=== PATIENT | female | born 1980 | race Caucasian/White ===

== ENCOUNTER 2017-08-03 17:57 | Emergency (ER) | payer OTHER ==
[2017-08-03 18:04] VITALS: BP 132/86
[2017-08-03] MEDS ORDERED: Sodium Chloride 0.9% 10 ML Syringe FLUSH PRN (18:35)
--- NOTE | 2017-08-03 20:03 | EDM.PDOC ---
ED HPI GENERAL MEDICAL PROBLEM - General Chief Complaint: Chest Pain Stated Complaint: CP/SOB Time Seen by Provider: 08/03/17 18:32 Source of Information: Reports: Patient History Limitations: Reports: No Limitations - History of Present Illness INITIAL COMMENTS - FREE TEXT/NARRATIVE: The patient presents with shortness of breath and chest pain. This started this morning and she has continued. She has never had trouble breathing. She has no fever, chills, cough, abdominal pain, nausea or vomiting. She has a history of a fast heart rhythm. She is on a beta pascual. 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: Reports: Other (see below) Other Treatments VOICE SYSTEMS ENGINEER: none Chest Pain Score (Numeric/FACES): 5 - Related Data Allergies Allergy/AdvReac Type Severity Reaction Status Date / Time acetaminophen Allergy Severe Vomiting Verified 04/13/14 22:02 [From Darvocet-N 100] propoxyphene napsylate Allergy Severe Vomiting Verified 04/13/14 22:02 [From Darvocet-N 100] Home Meds: Home Meds Hydrochlorothiazide 25 mg PO DAILY 04/13/14 [History] Lisinopril 10 mg PO DAILY 04/13/14 [History] Metoprolol Tartrate 100 mg PO DAILY 04/13/14 [History] Potassium Gluconate [Potassium] 20 meq PO DAILY 04/13/14 [History] metFORMIN HCl [Metformin HCl] 500 mg PO DAILY 11/15/14 [History] Aspirin [Halfprin] 81 mg PO DAILY 08/03/17 [History] Flexirle 10 mg PO Q8H PRN 08/03/17 [History] oxyCODONE HCl/Acetaminophen [Oxycodon-Acetaminophen 7.5-300] 10 - 325 mg PO Q6H PRN 08/03/17 [History] Past Medical History - Past Health History Medical/Surgical History: Denies Medical/Surgical History Cardiovascular History: Reports: Hypertension, Other (See Below) Other Cardiovascular History: fast heartbeat Respiratory History: Reports: Bronchitis, Recurrent, Pneumonia, Recurrent, SOB Gastrointestinal History: Reports: GERD Genitourinary History: Reports: UTI, Recurrent 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: 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 Musculoskeletal History: Reports: Back Pain, Chronic Neurological History: Reports: Migraines Psychiatric History: Reports: Anxiety Endocrine/Metabolic History: Reports: Diabetes, Type II Social & Family History - Tobacco Use Smoking Status *Q: Current Every Day Smoker Years of Tobacco use: 20 Packs/Tins Daily: 0.7 Used Tobacco, but Quit: No Month Tobacco Last Used: October Second Hand Smoke Exposure: No - Caffeine Use Caffeine Use: Reports: Coffee Other Caffeine Use: decaff - Alcohol Use Days Per Week of Alcohol Use: 0 - Recreational Drug Use Recreational Drug Use: No ED ROS GENERAL - Review of Systems Review Of Systems: See Below Constitutional: Reports: No Symptoms HEENT: Reports: No Symptoms Respiratory: Reports: Shortness of Breath Cardiovascular: Reports: Chest Pain Endocrine: Reports: No Symptoms GI/Abdominal: Reports: No Symptoms : Reports: No Symptoms Musculoskeletal: Reports: No Symptoms ED EXAM, GENERAL - Physical Exam Exam: See Below Exam Limited By: No Limitations General Appearance: Alert, No Apparent Distress Ears: Normal External Exam Nose: Normal Inspection Head: Atraumatic, Normocephalic Neck: Normal Inspection Respiratory/Chest: No Respiratory Distress, Lungs Clear, Normal Breath Sounds Cardiovascular: Regular Rate, Rhythm, No Edema, No Murmur GI/Abdominal: Soft, Non-Tender, No Organomegaly, No Mass Back Exam: Normal Inspection Extremities: Normal Inspection EKG INTERPRETATION EKG Date: 08/03/17 Time: 18:50 Rhythm: NSR Rate (Beats/Min): 78 [place]: Normal P-Wave: Present QRS: Normal ST-T: Normal QT: Normal Course - Vital Signs Last Recorded V/S: Last Vital Signs Temp 96.2 F 08/03/17 18:03 Pulse 90 08/03/17 18:03 Resp 20 08/03/17 18:03 BP 132/86 08/03/17 18:03 Pulse Ox 100 08/03/17 18:03 - Orders/Labs/Meds Orders: Active Orders 24 hr Category Date Time Status Cardiac Monitoring [RC] . DIRECTED Care 08/03/17 18:35 Active EKG Documentation Completion [RC] STAT Care 08/03/17 18:36 Active Oxygen Therapy [RC] PRN Care 08/03/17 18:36 Active Peripheral IV Care [RC] . DIRECTED Care 08/03/17 18:36 Active Chest 2V [CR] Stat Exams 08/03/17 18:36 Taken Sodium Chloride 0.9% [Saline Flush] Med 08/03/17 18:35 Active 10 ml FLUSH ASDIRECTED PRN Peripheral IV Insertion Adult [OM.PC] Stat Oth 08/03/17 18:35 Ordered Medication Orders Sodium Chloride (Saline Flush) 10 ml FLUSH ASDIRECTED PRN PRN Reason: Keep Vein Open Labs: Laboratory Tests 08/03/17 08/03/17 08/03/17 Range/Units 19:03 19:03 19:03 WBC 13.48 H (3.98-10.04) K/mm3 RBC 5.43 H (3.98-5.22) M/mm3 Hgb 15.1 (11.2-15.7) gm/L Hct 43.3 (34.1-44.9) % MCV 79.7 (79.4-94.8) fl MCH 27.8 (25.6-32.2) pg MCHC 34.9 (32.2-35.5) g/dl RDW Std Deviation 39.6 (36.4-46.3) fL Plt Count 356 (182-369) K/mm3 MPV 10.1 (9.4-12.3) fl Neut % (Auto) 65.4 (34.0-71.1) % Lymph % (Auto) 23.2 (19.3-51.7) % [place] % (Auto) 6.7 (4.7-12.5) % Eos % (Auto) 3.3 (0.7-5.8) Baso % (Auto) 1.0 (0.1-1.2) % Neut # (Auto) 8.80 H (1.56-6.13) K/mm3 Lymph # (Auto) 3.13 (1.18-3.74) K/mm3 [place] # (Auto) 0.90 H (0.24-0.36) K/mm3 Eos # (Auto) 0.45 H (0.04-0.36) K/mm3 Baso # (Auto) 0.14 H (0.01-0.08) K/mm3 Manual Slide Review Normal smear D-Dimer, Quantitative < 0.19 L (0.19-0.59) mg/L Sodium 138 (136-145) mEq/L Potassium 3.5 (3.5-5.1) mEq/L Chloride 103 (98-107) mEq/L Carbon Dioxide 27 (21-32) mEq/L Anion Gap 11.5 (5-15) BUN 11 (7-18) mg/dL Creatinine 0.9 (0.55-1.02) mg/dL Est Cr Clr Drug Dosing 70.11 mL/min Estimated GFR (MDRD) > 60 (>60) mL/min BUN/Creatinine Ratio 12.2 L (14-18) Glucose 107 H (74-106) mg/dL Calcium 9.7 (8.5-10.1) mg/dL Total Bilirubin 0.2 (0.2-1.0) mg/dL AST 14 L (15-37) U/L ALT 24 (14-59) U/L Alkaline Phosphatase 66 (46-116) U/L Troponin I < 0.017 (0.00-0.056) ng/mL Total Protein 7.3 (6.4-8.2) g/dl Albumin 4.0 (3.4-5.0) g/dl Globulin 3.3 gm/dL Albumin/Globulin Ratio 1.2 (1-2) Meds: Medications Generic Name Dose Route Start Last Admin Trade Name Freq PRN Reason Stop Dose Admin Sodium Chloride 10 ml 08/03/17 18:35 Saline Flush FLUSH ASDIRECTED PRN Keep Vein Open - Re-Assessments/Exams Free Text/Narrative Re-Assessment/Exam: 08/03/17 20:02 I ordered an IV saline lock, EKG, CXR and labs. Her EKG shows a NSR with no acute changes. Her CXR shows nothing acute. Her CBC and CMP look good. Her troponin is negative. Her D-dimer is negative. This appears to be pleurisy. Departure - Departure Time of Disposition: 20:05 Disposition: Home, Self-Care 01 Condition: Good Clinical Impression: Pleurisy Referrals: Shasha Richey MD [Primary Care Provider] - 1 Week Additional Instructions: Take an antiinflammatory such as motrin or aleve. Please return if you are worse. - My Orders Last 24 Hours: My Active Orders 08/03/17 18:35 Cardiac Monitoring [RC] . DIRECTED Sodium Chloride 0.9% [Saline Flush] 10 ml FLUSH ASDIRECTED PRN Peripheral IV Insertion Adult [OM.PC] Stat 08/03/17 18:36 EKG Documentation Completion [RC] STAT Oxygen Therapy [RC] PRN Peripheral IV Care [RC] . DIRECTED Chest 2V [CR] Stat - Assessment/Plan Last 24 Hours: My Active Orders 08/03/17 18:35 Cardiac Monitoring [RC] . DIRECTED Sodium Chloride 0.9% [Saline Flush] 10 ml FLUSH ASDIRECTED PRN Peripheral IV Insertion Adult [OM.PC] Stat 08/03/17 18:36 EKG Documentation Completion [RC] STAT Oxygen Therapy [RC] PRN Peripheral IV Care [RC] . DIRECTED Chest 2V [CR] Stat
--- NOTE | 2017-08-04 07:07 | CR ---
Chest: Two views of the chest were obtained. Comparison: Prior chest x-ray of 11/15/14. Heart size and mediastinum are normal. Lungs are clear. Bony structures appear within normal limits. Impression: 1. Nothing acute is appreciated on two-view chest x-ray. Diagnostic code #1
== END 2017-08-03 20:12 | disposition home or self-care (01) ==
LOC: JD.ED 17:57
DX: R09.1 Pleurisy (principal); E11.9 Type 2 diabetes mellitus without complications; F17.210 Nicotine dependence, cigarettes, uncomplicated; Z88.8 Allergy status to other drugs, medicaments and biological substances; Z79.899 Other long term (current) drug therapy; Z79.84 Long term (current) use of oral hypoglycemic drugs; Z79.82 Long term (current) use of aspirin
CPT/HCPCS: 36415; 71020; 71020-26; 80053; 84484; 85025; 85379; 93005; 93010; 99285-25

== ENCOUNTER 2020-12-01 23:18 | Emergency (ER) | payer OTHER ==
[2020-12-01 23:35] VITALS: BP 172/146; PULSE 90
--- NOTE | 2020-12-02 00:06 | EDM.PDOC ---
ED HPI GENERAL MEDICAL PROBLEM - General Chief Complaint: Respiratory Problem Stated Complaint: LUNG PAIN POST OP Time Seen by Provider: 12/02/20 00:06 - History of Present Illness INITIAL COMMENTS - FREE TEXT/NARRATIVE: 40-year-old female presents to the emergency room with chest pain. About a month and a half ago she had a partial right lobectomy for persistent infection. She is not noticed any fevers or chills. This pain started about 3 days ago after she lifted up a heavy trash bag. The pain is isolated to the right side. Her surgery was on the right side. Patient has tried oxycodone Tylenol and ibuprofen without much success. Patient was admitted for about a week was on antibiotics all this time and had her chest tubes removed the day before discharge. She was told she would have lots of pain with this so she expected it but the suture got aggravated after the lifting of the garbage a few days ago. Right Chest Pain Score (Numeric/FACES): 8 - Related Data Allergies Allergy/AdvReac Type Severity Reaction Status Date / Time acetaminophen AdvReac Severe Vomiting Verified 12/01/20 23:35 [From Darvocet-N 100] propoxyphene napsylate AdvReac Severe Vomiting Verified 12/01/20 23:35 [From Darvocet-N 100] sulfamethoxazole AdvReac Severe Burning Verified 12/01/20 23:35 [From Septra] trimethoprim [From Aprra] AdvReac Severe Burning Verified 12/01/20 23:35 Home Meds: Home Meds Lisinopril 20 mg PO DAILY 04/13/14 [History] Metoprolol Tartrate 100 mg PO DAILY 04/13/14 [History] hydroCHLOROthiazide [Hydrochlorothiazide] 25 mg PO DAILY 04/13/14 [History] metFORMIN HCl [Metformin HCl] 500 mg PO BID 11/15/14 [History] Gabapentin [Neurontin] 500 mg PO BID 12/01/20 [History] Ibuprofen 800 mg PO BID 12/01/20 [History] Ondansetron [Zofran ODT] 4 mg PO Q6H PRN 12/01/20 [History] oxyCODONE 5 mg PO Q6HR 12/01/20 [History] Past Medical History - Past Health History Medical/Surgical History: Denies Medical/Surgical History Cardiovascular History: Reports: Hypertension, Other (See Below) Other Cardiovascular History: fast heartbeat Respiratory History: Reports: Bronchitis, Recurrent, Pneumonia, Recurrent, SOB Gastrointestinal History: Reports: GERD Genitourinary History: Reports: UTI, Recurrent 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 Denies: Cough, Sputum Cardiovascular: Reports: No Symptoms Endocrine: Reports: No Symptoms GI/Abdominal: Reports: No Symptoms Musculoskeletal: Reports: No Symptoms ED EXAM, GENERAL - Physical Exam Exam: See Below Exam Limited By: Uncooperative General Appearance: Alert, No Apparent Distress Head: Atraumatic, Normocephalic Neck: Normal Inspection, Supple, Non-Tender, Full Range of Motion. No: Lymphadenopathy (L), Lymphadenopathy (R) Respiratory/Chest: No Respiratory Distress, Lungs Clear, Normal Breath Sounds, Other (Breath sounds on the right side are slightly diminished compared to the left) Cardiovascular: Normal Peripheral Pulses, Regular Rate, Rhythm, No Edema, No Murmur GI/Abdominal: Normal Bowel Sounds, Soft, Non-Tender Back Exam: Normal Inspection. No: CVA Tenderness (L), CVA Tenderness (R) Extremities: Normal Inspection, Normal Range of Motion, Non-Tender Neurological: Alert, Oriented, Normal Cognition Psychiatric: Normal Affect, Normal Mood Lymphatic: No Adenopathy #1 Interpretation EKG Date: 12/02/20 Rhythm: NSR [place]: Normal P-Wave: Present QRS: Other (Poor R wave progression. Look corneal leads) ST-T: Normal QT: Normal Comparison: No Change (No significant change from 2014) Course - Vital Signs Last Recorded V/S: Last Vital Signs Temp 36.0 C L 12/01/20 23:32 Pulse 90 12/01/20 23:32 Resp 20 12/01/20 23:32 BP 172/146 H 12/01/20 23:32 Pulse Ox 97 12/01/20 23:32 - Orders/Labs/Meds Orders: Active Orders 24 hr Category Date Time Status EKG Documentation Completion [RC] STAT Care 12/02/20 00:16 Active Chest 2V [CR] Stat Exams 12/02/20 00:16 Taken Labs: Laboratory Tests 12/02/20 12/02/20 12/02/20 Range/Units 00:45 00:45 00:45 WBC 11.67 H (3.98-10.04) K/mm3 RBC 5.28 H (3.98-5.22) M/mm3 Hgb 14.6 (11.2-15.7) gm/dl Hct 42.4 (34.1-44.9) % MCV 80.3 (79.4-94.8) fl MCH 27.7 (25.6-32.2) pg MCHC 34.4 (32.2-35.5) g/dl RDW Std Deviation 38.5 (36.4-46.3) fL Plt Count 318 (182-369) K/mm3 MPV 10.3 (9.4-12.3) fl Neut % (Auto) 57.2 (34.0-71.1) % Lymph % (Auto) 30.2 (19.3-51.7) % [place] % (Auto) 8.1 (4.7-12.5) % Eos % (Auto) 3.3 (0.7-5.8) Baso % (Auto) 0.9 (0.1-1.2) % Neut # (Auto) 6.66 H (1.56-6.13) K/mm3 Lymph # (Auto) 3.52 (1.18-3.74) K/mm3 [place] # (Auto) 0.95 H (0.24-0.36) K/mm3 Eos # (Auto) 0.39 H (0.04-0.36) K/mm3 Baso # (Auto) 0.11 H (0.01-0.08) K/mm3 Manual Slide Review Normal smear D-Dimer, Quantitative 0.23 (0.19-0.50) mg/L Sodium 139 (136-145) mEq/L Potassium 3.9 (3.5-5.1) mEq/L Chloride 104 (98-107) mEq/L Carbon Dioxide 20 L (21-32) mEq/L Anion Gap 18.9 H (5-15) BUN 13 (7-18) mg/dL Creatinine 0.8 (0.55-1.02) mg/dL Est Cr Clr Drug Dosing 76.55 mL/min Estimated GFR (MDRD) > 60 (>60) mL/min BUN/Creatinine Ratio 16.3 (14-18) Glucose 222 H (74-106) mg/dL Calcium 8.9 (8.5-10.1) mg/dL Total Bilirubin 0.2 (0.2-1.0) mg/dL AST 13 L (15-37) U/L ALT 37 (14-59) U/L Alkaline Phosphatase 75 (46-116) U/L Troponin I < 0.017 (0.00-0.056) ng/mL Total Protein 7.5 (6.4-8.2) g/dl Albumin 3.9 (3.4-5.0) g/dl Globulin 3.6 gm/dL Albumin/Globulin Ratio 1.1 (1-2) - Re-Assessments/Exams Free Text/Narrative Re-Assessment/Exam: 12/02/20 03:06 Labs are nondiagnostic x-ray shows elevated hemidiaphragm on the right possible mild effusion and some atelectasis. Virtual radiology review this they said partial atelectasis in the right lower lobe. I did discuss the findings with the patient we will forward these images to [facility] so her thoracic surgeon has access to these. And have advised the patient to follow-up with her thoracic surgeon. The cause of her pain is most likely lifting injury from taking out the trash several days ago. The patient has [id number] Tylenol and ibuprofen and has pain medication at home. Departure - Departure Time of Disposition: 03:08 Disposition: Home, Self-Care 01 Clinical Impression: Right-sided chest pain - Discharge Information Referrals: Shasha Richey MD [Primary Care Provider] - Forms: ED Department Discharge Additional Instructions: Return to the emergency room with any questions problems or worsening symptoms. Call your thoracic surgeon tomorrow, I have forward a copy of your x-rays to [facility] in [place]. Use your pain medications as needed. Use your incentive spirometer. This is the device you breathe into to help open your lungs. Sepsis Event Note (ED) - Evaluation Sepsis Screening Result: No Definite Risk - Focused Exam Vital Signs: Vital Signs Temp Pulse Resp BP Pulse Ox 04/05/21 23:32 36.0 C L 90 20 172/146 H 97 - My Orders Last 24 Hours: My Active Orders 12/02/20 00:16 EKG Documentation Completion [RC] STAT Chest 2V [CR] Stat - Assessment/Plan Last 24 Hours: My Active Orders 12/02/20 00:16 EKG Documentation Completion [RC] STAT Chest 2V [CR] Stat
--- NOTE | 2020-12-02 08:51 | CR ---
Chest: 2 views of the chest were obtained. Comparison: Prior chest x-ray of 08/03/17 and 11/15/14. Elevated right hemidiaphragm is seen which is an interval change from prior exam. Resection of a portion of the right fifth rib is seen which is an interval change from prior exam. There is mild atelectasis seen within the right lung base from prior exam. Lungs are otherwise clear. Heart size and mediastinum are normal. Slight degenerative change is noted within the spine. Impression: 1. Previous rib resection as described above. Elevated right hemidiaphragm which most likely relates to prior surgery. 2. Mild right basilar atelectasis is seen. Diagnostic code #2 I agree with preliminary report from [facility], finalized on 12/02/20, 3:58 AM CDT
== END 2020-12-02 03:15 | disposition home or self-care (01) ==
LOC: JD.ED 23:18
DX: R07.9 Chest pain, unspecified (principal); I10 Essential (primary) hypertension; E11.9 Type 2 diabetes mellitus without complications; Z88.6 Allergy status to analgesic agent; Z88.2 Allergy status to sulfonamides; Z88.1 Allergy status to other antibiotic agents; Z79.84 Long term (current) use of oral hypoglycemic drugs; Z79.899 Other long term (current) drug therapy
CPT/HCPCS: 36415; 71046; 71046-26; 80053; 84484; 85025; 85379; 93005; 93010; 99283; 99285-25

== ENCOUNTER 2022-01-03 16:17 | Emergency (ER) | payer OTHER ==
[2022-01-03 16:53] VITALS: PULSE 91
[2022-01-03] MEDS ORDERED: Bacitracin Oint 15 GM Tube TOP ONE (17:50)
== END 2022-01-03 18:45 | disposition home or self-care (01) ==
LOC: JD.ED 16:17
DX: R19.8 Other specified symptoms and signs involving the digestive system and abdomen (principal); I10 Essential (primary) hypertension; E11.9 Type 2 diabetes mellitus without complications; E66.9 Obesity, unspecified; Z68.30 Body mass index [BMI] 30.0-30.9, adult; Z79.84 Long term (current) use of oral hypoglycemic drugs
CPT/HCPCS: 99283

== ENCOUNTER 2022-07-29 21:16 | Emergency (ER) | payer OTHER ==
[2022-07-29 23:24] VITALS: BP 116/89; PULSE 81
== END 2022-07-29 23:23 | disposition home or self-care (01) ==
LOC: JD.ED 21:16
DX: T38.3X1A Poisoning by insulin and oral hypoglycemic [antidiabetic] drugs, accidental (unintentional), initial encounter (principal); T46.5X1A Poisoning by other antihypertensive drugs, accidental (unintentional), initial encounter; T50.2X1A Poisoning by carbonic-anhydrase inhibitors, benzothiadiazides and other diuretics, accidental (unintentional), initial encounter; T45.8X1A Poisoning by other primarily systemic and hematological agents, accidental (unintentional), initial encounter; I10 Essential (primary) hypertension; E11.9 Type 2 diabetes mellitus without complications; F17.210 Nicotine dependence, cigarettes, uncomplicated; E66.9 Obesity, unspecified; Z88.6 Allergy status to analgesic agent; Z88.2 Allergy status to sulfonamides; Z79.84 Long term (current) use of oral hypoglycemic drugs; Z79.899 Other long term (current) drug therapy
CPT/HCPCS: 99283

== ENCOUNTER 2024-03-04 21:45 | Emergency (ER) | payer BC, OTHER ==
[2024-03-04] MEDS ORDERED: Sodium Chloride 0.9% 10 ML Syringe FLUSH PRN (22:11)
[2024-03-04 22:43] LABS: BASOPHILS ABSOLUTE AUTO 0.1 K/mm3 (0.0-0.2); BASOPHILS PERCENT AUTO 1.2 % (0.0-1.0); EOSINOPHILS ABSOLUTE AUTO 0.3 K/mm3 (0.0-0.4); EOSINOPHILS PERCENT AUTO 2.1 % (0.0-6.0); HEMATOCRIT 45.1 % (37.0-47.0); HEMOGLOBIN 15.5 gm/dl (12.0-16.0); IMMATURE GRAN ABSOLUTE AUTO 0.06 K/mm3 (0.00-0.05); IMMATURE GRAN PERCENT AUTO 0.5 % (0.0-0.4); MEAN CORPUSCULAR HEMOGLOBIN 28.5 pg (28.0-32.0); MEAN CORPUSCULAR HGB CONC 34.4 g/dl (32.0-36.0); MEAN CORPUSCULAR VOLUME 83.1 fl (83.0-99.0); MEAN PLATELET VOLUME 10.2 fl (9.4-12.3); MONOCYTES ABSOLUTE AUTO 0.6 K/mm3 (0.0-0.8); MONOCYTES PERCENT AUTO 5.2 % (0.0-8.0); NEUTROPHILS ABSOLUTE AUTO 7.9 K/mm3 (1.8-7.7); PLATELET COUNT,PLT 358 K/mm3 (150-400); RED BLOOD CELL COUNT 5.43 M/mm3 (4.10-5.30)
[2024-03-04 23:05] LABS: A/G RATIO 1.2 (1-2); ALBUMIN 3.8 g/dl (3.4-5.0); ANION GAP 15.7 (5-15); BILIRUBIN TOTAL 0.3 mg/dL (0.2-1.0); BUN/CREATININE RATIO 11.7 (14-18); C-REACTIVE PROTEIN 0.44 mg/dL (<0.30); CALCIUM 9.2 mg/dL (8.5-10.1); CREATININE 1.2 mg/dL (0.55-1.02); EST CRCL DRUG DOSING (CG) 49.49 mL/min; MAGNESIUM 1.9 mg/dL (1.8-2.4); POTASSIUM,K 3.7 mEq/L (3.5-5.1); PROTEIN TOTAL,TP 7.1 g/dl (6.4-8.2)
[2024-03-04 23:20] LABS: CORONAVIRUS COVID-19 NAA NEGATIVE (NEGATIVE); INFLUENZA A NAA NEGATIVE (NEGATIVE); RESPIRATORY SYNCYTIAL VIR NAA NEGATIVE (NEGATIVE)
[2024-03-04] MEDS ORDERED: Sodium Chloride 0.9% 1,000 ML IV ONE (23:47)
[2024-03-04] MEDS ORDERED: methylPREDNISolone Acetate 80 MG/ML SDV IM ONE (23:49)
[2024-03-05] MEDS: Triamcinolone Acetonide 40 MG/ML 1 ML SDV INJECT ONE (00:20)
[2024-03-05] MEDS: Triamcinolone Acetonide 40 MG/ML 1 ML SDV ONE (00:21)
[2024-03-05 00:28] VITALS: BP 156/98; PULSE 99
== END 2024-03-05 00:25 | disposition home or self-care (01) ==
LOC: JD.ED 21:45
DX: J45.20 Mild intermittent asthma, uncomplicated (principal); B34.9 Viral infection, unspecified; M31.30 Wegener's granulomatosis without renal involvement; E11.9 Type 2 diabetes mellitus without complications; I10 Essential (primary) hypertension; J45.909 Unspecified asthma, uncomplicated; K21.9 Gastro-esophageal reflux disease without esophagitis; Z88.6 Allergy status to analgesic agent; Z88.8 Allergy status to other drugs, medicaments and biological substances; Z88.2 Allergy status to sulfonamides; Z79.84 Long term (current) use of oral hypoglycemic drugs; Z79.899 Other long term (current) drug therapy; Z86.16 Personal history of COVID-19; Z87.891 Personal history of nicotine dependence
CPT/HCPCS: 0241U; 36415; 71250; 80053; 83735; 84703; 85025; 86140; 96372; 99285; J3301

== ENCOUNTER 2025-07-20 12:43 | Emergency (ER) | payer BC ==
[2025-07-20] MEDS ORDERED: Sodium Chloride 0.9% 10 ML Syringe FLUSH PRN (13:27)
[2025-07-20] MEDS: Ondansetron 4 MG/2 ML SDV IVPUSH ONE (14:18)
[2025-07-20 14:21] LABS: BASOPHILS ABSOLUTE AUTO 0.1 K/mm3 (0.0-0.2); BASOPHILS PERCENT AUTO 1.1 % (0.0-1.0); EOSINOPHILS ABSOLUTE AUTO 0.2 K/mm3 (0.0-0.4); EOSINOPHILS PERCENT AUTO 1.4 % (0.0-6.0); IMMATURE GRAN ABSOLUTE AUTO 0.09 K/mm3 (0.00-0.05); IMMATURE GRAN PERCENT AUTO 0.8 % (0.0-0.4); LYMPHOCYTES ABSOLUTE AUTO 2.3 K/mm3 (1.0-4.8); LYMPHOCYTES PERCENT AUTO 19.2 % (24.0-44.0); MEAN PLATELET VOLUME 9.9 fl (9.4-12.3); MONOCYTES ABSOLUTE AUTO 1.4 K/mm3 (0.0-0.8); MONOCYTES PERCENT AUTO 11.9 % (0.0-8.0); NEUTROPHILS ABSOLUTE AUTO 7.8 K/mm3 (1.8-7.7); NEUTROPHILS PERCENT AUTO 65.6 % (41.0-71.0); NRBC ABSOLUTE 0.00 (0.00-0.02); NRBC PERCENT 0.0 % (0.0-0.2); PLATELET COUNT,PLT 381 K/mm3 (150-400); RED BLOOD CELL COUNT 6.45 M/mm3 (4.10-5.30); WHITE BLOOD CELL COUNT,WBC 11.85 K/mm3 (3.9-11.3)
[2025-07-20 14:45] LABS: A/G RATIO 1.2 (1-2); ALANINE AMINOTRANSFERASE,ALT 48.0 U/L (14-59); ASPARTATE AMNIOTRANSFERASE,AST 25.0 U/L (15-37); BILIRUBIN TOTAL 0.7 mg/dL (0.2-1.0); BLOOD UREA NITROGEN,BUN 14.0 mg/dL (7-18); CARBON DIOXIDE,CO2 27.0 mEq/L (21-32); CHLORIDE,CL 98.0 mEq/L (98-107); CREATININE 1.0 mg/dL (0.55-1.02); EST CRCL DRUG DOSING (CG) 58.15 mL/min; ESTIMATED GFR 70.0 mL/min (>60); GLUCOSE RANDOM 114.0 mg/dL (70-99); POTASSIUM,K 4.1 mEq/L (3.5-5.1); PROTEIN TOTAL,TP 7.6 g/dl (6.4-8.2); SODIUM,NA 137.0 mEq/L (136-145); TROPONIN I HIGH SENSITIVITY 21.0 pg/mL (<=51)
[2025-07-20 16:20] VITALS: BP 137/104; PULSE 87
== END 2025-07-20 16:01 | disposition home or self-care (01) ==
LOC: JD.ED 12:43
DX: R11.2 Nausea with vomiting, unspecified (principal); E86.0 Dehydration; I10 Essential (primary) hypertension; J45.909 Unspecified asthma, uncomplicated; E11.9 Type 2 diabetes mellitus without complications; E66.9 Obesity, unspecified; Z68.41 Body mass index [BMI] 40.0-44.9, adult; Z86.16 Personal history of COVID-19; Z88.6 Allergy status to analgesic agent; Z88.8 Allergy status to other drugs, medicaments and biological substances; Z79.84 Long term (current) use of oral hypoglycemic drugs; Z79.899 Other long term (current) drug therapy
CPT/HCPCS: 36415; 80053; 84484; 85025; 93005; 96361; 96374; 99284; J2405; J7030